=== PATIENT | male | born 1955 | race Caucasian/White ===

== ENCOUNTER 2021-07-17 07:49 | Emergency (ER) | payer MEDICARE, OTHER ==
[~2021-07-17] VITALS: Ht 180.3 cm; Wt 95.2 kg
[2021-07-17] MEDS ORDERED: RIFA550T2 PO (08:03)
[2021-07-17] MEDS ORDERED: ATOR40TA PO (08:03)
[2021-07-17] MEDS ORDERED: CLOP75 PO (08:03)
[2021-07-17] MEDS ORDERED: PANT40 PO (08:04)
[2021-07-17] MEDS ORDERED: FURO40 PO (08:04)
[2021-07-17] MEDS ORDERED: METO25ER PO (08:04)
[2021-07-17] MEDS ORDERED: Prinivil10 MG PO (08:04)
[2021-07-17] MEDS ORDERED: XARELTO20 MG PO (08:05)
[2021-07-17 08:31] LABS: BASOPHILS ABSOLUTE AUTO 0.06 K/mm3 (0.00-0.23); BASOPHILS PERCENT AUTO 1 % (0-2); EOSINOPHILS ABSOLUTE AUTO 0.32 K/mm3 (0.00-0.68); EOSINOPHILS PERCENT AUTO 5 % (0-6); Hematocrit 40.6 % (37.0-53.0); IMMATURE GRAN ABSOLUTE AUTO 0.04 K/mm3 (0.00-0.10); IMMATURE GRAN PERCENT AUTO 1 % (0-1); LYMPHOCYTES ABSOLUTE AUTO 1.15 K/mm3 (0.84-5.20); LYMPHOCYTES PERCENT AUTO 16 % (21-46); MONOCYTES ABSOLUTE AUTO 0.79 K/mm3 (0.16-1.47); MONOCYTES PERCENT AUTO 11 % (4-13); Mean Corpuscular HGB 27.5 pg (26.0-34.0); Mean Corpuscular Volume 86 fL (80-100); Mean Platelet Volume 10.6 fL (9.1-12.4); NEUTROPHILS ABSOLUTE AUTO 4.79 K/mm3 (1.96-9.15); NEUTROPHILS PERCENT AUTO 67 % (41-73); Platelet Count 164 K/mm3 (150-400); RDW Coefficient Variation 18.4 % (11.7-14.2); RDW Standard Deviation 58.2 fL (35.1-46.3); Red Blood Cell Count 4.73 M/mm3 (4.30-5.90); White Blood Cell Count 7.15 K/mm3 (4.00-11.30)
[2021-07-17 08:44] LABS: Alanine Aminotransfer (ALT/SGP 57 U/L (12-78); Albumin, Blood 2.9 g/dL (3.4-5.0); Albumin/Globulin Ratio 0.9 (0.8-1.8); Alk Phos 158 U/L (50-136); Anion Gap 7 mmol/L (6-16); Aspartate Aminotrans (AST/SGOT 43 U/L (12-37); Blood Urea Nitrogen 18 mg/dL (8-24); Bun/Creatinine Ratio 21.3 (12.0-20.0); CO2, Blood 26 mmol/L (21-32); Calcium, Blood 8.7 mg/dL (8.5-10.1); Chloride, Blood 108 mmol/L (98-108); Creatinine, Blood 0.85 mg/dL (0.60-1.20); Globulin, Blood 3.3 g/dL (2.2-4.0); Glomerular Filtration Rate >60 (60-); Glucose, Blood 130 mg/dL (70-99); Potassium, Blood 3.8 mmol/L (3.5-5.5); Sodium, Blood 141 mmol/L (136-145); Total Protein, Blood 6.2 g/dL (6.4-8.2)
== END 2021-07-17 09:50 | disposition home or self-care (01) ==
LOC: ER 07:49
PROVIDERS: Emergency Medicine
DX: G45.9 Transient cerebral ischemic attack, unspecified (principal); I48.91 Unspecified atrial fibrillation; Z79.899 Other long term (current) drug therapy
CPT/HCPCS: 70450; 80053; 85025; 93005; 93010; 99285-25